=== PATIENT | female | born 1985 | race Caucasian/White ===

== ENCOUNTER 2017-10-10 17:31 | Inpatient (IN) | payer OTHER ==
[~2017-10-10] VITALS: Ht 162.6 cm; Wt 96.6 kg
[~2017-10-10 17:31] MED LIST: PROVIDA DHA CA1 EACH
== END 2017-11-23 10:25 | disposition home or self-care (01) | DRG 778 ==
LOC: OBS/DEL 17:31 → LDR 10-11 08:04 → OB/GYN 10-11 08:04
PROC: BY4FZZZ Ultrasonography of Third Trimester, Single Fetus (ICD-10-PCS; principal; 2017-10-11)
PROC: 4A1HXCZ Monitoring of Products of Conception, Cardiac Rate, External Approach (ICD-10-PCS; 2017-10-11)
PROC: BY4FZZZ Ultrasonography of Third Trimester, Single Fetus (ICD-10-PCS; 2017-10-24)
PROC: BY4FZZZ Ultrasonography of Third Trimester, Single Fetus (ICD-10-PCS; 2017-11-03)
DX: O60.03 Preterm labor without delivery, third trimester (principal); Z3A.28 28 weeks gestation of pregnancy

== ENCOUNTER 2017-12-12 09:31 | Outpatient (CLI) | payer OTHER | END 2017-12-12 12:07 | disposition home or self-care (01) | LOC: NST 09:31 | DX: Z34.83 Encounter for supervision of other normal pregnancy, third trimester (principal) ==